=== PATIENT | female | born 1965 | race Caucasian/White ===

== ENCOUNTER 2017-02-23 17:53 | Emergency (ER) ==
[2017-02-23 18:03] VITALS: BP 130/84; TEMP 97.8; BMI 30.2
--- NOTE | 2017-02-23 18:14 | ED.PDOC ---
General ED Provider: Dr. KOFFI DUCKWORTH-ER Chief Complaint: Shoulder Pain/Injury Stated Complaint: my shoulder and upper back hurts to move--no trauma--no chest pain, dyspnea or nausea Time Seen by Physician: 18:12 Mode of Arrival: Walk-In Information Source: Patient Exam Limitations: No limitations Primary Care Provider: RAMONA KIM Nursing and Triage Documentation Reviewed and Agree: Yes Musculoskeletal Complaint Exam - Shoulder Pain Complaint/Exam Mechanism of Injury: Reports: No known trauma Onset/Duration: 24hrs Symptoms Are: Still present Timing: Constant Initial Severity: Mild Current Severity: Mild Location: Reports: Discrete (upper back and left shoulder) Character: Reports: Dull, Aching, Spasmodic, Stiffness Alleviating: Reports: None Aggravating: Reports: Movement, Lifting, Flexion, Extension, Internal rotation, External rotation, Abduction Associated Signs and Symptoms: Denies: Swelling, Redness, Bruising, Fever, Weakness, Numbness, Tingling Non-Orthopedic Risk Factors: Reports: None Septic Arthritis Risk Factors: Reports: None Shoulder Findings: Absent: Swelling, Ecchymosis, Abnormal contour, Rotation, Ligamentous instability, Laceration, Erythema, Warmth, Blisters, Other joint pain, Foreign body, Adson's Sign Limited Range of Motion: Present: Abduction, Adduction, Flexion, Extension, Internal rotation, External rotation, Rotator cuff muscles, Rotator cuff insertion Differential Diagnoses: Rotator Cuff Injury, Sprain, Strain, Other Review of Systems - Review Of Systems Constitutional: Reports: No symptoms Eyes: Reports: No symptoms Ears, Nose, Mouth, Throat: Reports: No symptoms Respiratory: Reports: No symptoms Cardiac: Reports: No symptoms GI: Reports: No symptoms : Reports: No symptoms Musculoskeletal: Reports: Back pain, Joint pain, Muscle pain Skin: Reports: No symptoms Neurological: Reports: No symptoms Endocrine: Reports: No symptoms Hematologic/Lymphatic: Reports: No symptoms All Other Systems: Reviewed and Negative Past Medical History - Past Medical History Endocrine: Reports: Unknown Cardiovascular: Reports: Unknown Respiratory: Reports: Unknown Hematological: Reports: Unknown Gastrointestinal: Reports: Unknown Genitourinary: Reports: Unknown Neuro/Psych: Reports: Other Musculoskeletal: Reports: Arthritis, Back Pain, Other (fibromyalgia) Cancer: Reports: None Last Menstrual Period: hysterectomy - Surgical History General Surgical History: Reports: Unknown - Family History Family History: Reports: Unknown - Social History Smoking Status: Former smoker Hx Substance Use: No Alcohol Screening: None Lives: With family Physical Exam - Physical Exam Appearance: Well-appearing, No pain distress, Well-nourished Pain Distress: Mild Eyes: SOSA, EOMI, Conjunctiva clear ENT: Ears normal, Nose normal, Oropharynx normal Neck: Supple Respiratory: Airway patent, Breath sounds clear, Breath sounds equal, Respirations nonlabored Cardiovascular: RRR, Pulses normal, No rub, No murmur GI/: Soft, Nontender, No masses, Bowel sounds normal, No Organomegaly Musculoskeletal: Limited ROM (noted point tenderness over the scapula and thoracic spine) Skin: Warm, Dry, Normal color Neurological: Sensation intact, Motor intact, Reflexes intact, Cranial nerves intact, Alert, Oriented Psychiatric: Affect appropriate, Mood appropriate Interpretation - Radiology Interpretation Radiology Interpretation By: ED Physician Radiology Results: Negative Critical Care Note - Critical Care Note Total Time (mins): 0 Course - Course Orders, Labs, Meds: Orders Category Date Time Status CERVICAL SPINE, MIN 4 VIEWS Stat RADS 02/23/17 18:08 Taken CXR [CHEST, 2 VIEWS PA & LAT] Stat RADS 02/23/17 18:10 Taken SHOULDER, LEFT MIN 2V Stat RADS 02/23/17 18:08 Taken THORACIC SPINE, 3 VIEWS Stat RADS 02/23/17 18:08 Taken Vital Signs: Temp Pulse Resp BP Pulse Ox 02/23/17 17:54 97.8 F 79 20 130/84 98 Departure - Departure Time of Disposition: 18:37 Disposition: HOME SELF-CARE Discharge Problem: Fibromyalgia muscle pain Bursitis Qualifiers: Bursitis location: shoulder Laterality: left Qualifier Code: (M75.52) Bursitis of left shoulder Instructions: Fibromyalgia (ED), Trigger Point Pain (ED) Condition: Good Pt referred to PMD for follow-up: Yes Additional Instructions: percocet 5mg q 6hrs prn pain #20--flexeril 10mg tid #30--heat alt cold--f/u with pcp Allergies/Adverse Reactions: Allergies bacitracin [From Neosporin ([id number])] Adverse Reaction (Verified 02/23/17 18:03) codeine Adverse Reaction (Verified 09/29/13 23:23) meloxicam [From Mobic] Adverse Reaction (Verified 09/29/13 23:23) neomycin [From Neosporin ([id number])] Adverse Reaction (Verified 02/23/17 18 :03) polymyxin B [From Neosporin ([id number])] Adverse Reaction (Verified 18:03) Sulfa (Sulfonamide Antibiotics) Adverse Reaction (Verified 01/31/14 12:08) zoster vaccine live [From Zostavax (PF)] Adverse Reaction (Verified 02/23/17 18: 03) Home Medications: Ambulatory Orders Albuterol Sulfate 0.083% Neb [Albuterol 0.083% Neb] 2 puff INH Q4H PRN 09/29/13 Calcium Carb & Lact/Vitamin D3 [Calcet Petites Tablet] 1 tab PO DAILY 09/29/13 Folic Acid 1 mg PO DAILY 09/29/13 Levothyroxine Sodium [Synthroid] 75 mcg PO DAILY 09/29/13 Loratadine 10 mg PO DAILY PRN 09/29/13 Methotrexate Sodium [Methotrexate] 8 tab PO WEEKLY 09/29/13 Disposition Discussed With: Patient
--- NOTE | 2017-02-24 07:14 | DI ---
EXAM: PA and lateral views of the chest HISTORY: Shoulder pain COMPARISON: Chest x-ray 12/18/2010 FINDINGS: The cardiomediastinal silhouette is normal. There is no pneumothorax or pleural effusion . Left upper lobe calcified granuloma is present. There is no consolidation, nodule or mass. The osseous structures are unremarkable. There are surgical clips in right upper quadrant. IMPRESSION: No acute cardiopulmonary process or consolidation.
--- NOTE | 2017-02-24 07:16 | DI ---
EXAM: Five views of the cervical spine HISTORY: Neck pain. COMPARISON: None FINDINGS: There is no acute compression fracture or subluxation of the cervical spine. There is no lytic or blastic lesion. The vertebral body height, disc space alignment are normal. The facets an d posterior processes are unremarkable. Neural foramen are patent. There is no acute displaced fra cture of the odontoid process. IMPRESSION: No acute abnormality or displaced fracture of the cervical spine. If further evaluatio n is clinically indicated, CT may be obtained.
--- NOTE | 2017-02-24 07:16 | DI ---
EXAM: Three views of the left shoulder HISTORY: Left shoulder. COMPARISON: The chest x-ray same day FINDINGS: There is no cortical irregularity or displaced fracture of the left shoulder. The glenohu meral joint and acromioclavicular joint are normal. There is no lytic or blastic lesion. The soft tissues are unremarkable. There are calcified granulomas noted in the left upper lobe. IMPRESSION: No acute abnormality or displaced fracture of the left shoulder.
--- NOTE | 2017-02-24 07:24 | DI ---
EXAM: Three views of the thoracic spine HISTORY: Back pain. COMPARISON: None FINDINGS: The thoracic spine demonstrates no acute compression fracture or subluxation. There is no lytic or blastic lesion. There is minimal scattered disc space narrowing. The soft tissues are no rmal. IMPRESSION: Mild scattered degenerative disease with no acute compression fracture or subluxation.
== END 2017-02-23 18:48 | disposition home or self-care (01) ==
LOC: ED 17:53
DX: M75.52 Bursitis of left shoulder (principal); M79.7 Fibromyalgia; M54.6 Pain in thoracic spine
CPT/HCPCS: 99282